=== PATIENT | male | born 2000 | race American Indian/Alaskan Native ===

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

== ENCOUNTER 2019-04-06 20:38 | Emergency (ER) | payer SELFPAY | END 2019-04-06 21:27 | disposition left against medical advice (07) | LOC: ED 20:38 | DX: Z53.21 Procedure and treatment not carried out due to patient leaving prior to being seen by health care provider (principal) ==

== ENCOUNTER 2019-06-07 14:37 | Emergency (ER) | payer SELFPAY | END 2019-06-07 17:05 | disposition left against medical advice (07) | LOC: ED 14:37 | DX: R51 Headache (principal); Z53.21 Procedure and treatment not carried out due to patient leaving prior to being seen by health care provider ==